=== PATIENT | male | born 1995 | race Caucasian/White ===

== ENCOUNTER 2018-11-26 15:31 | Emergency (ER) | payer MEDICAID ==
[~2018-11-26] VITALS: Ht 182.9 cm; Wt 83.0 kg
[2018-11-26 15:31] VITALS: BP_SYST 136
--- NOTE | 2018-11-26 15:31 | NUR ---
BROUGHT IN BY [facility] AND PLACED IN BED #4, TRIAGED. REPORT GIVEN TO RIGOBERTO
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
[2018-11-26] MEDS ORDERED: KETOROLAC TROMETHAMINE 30 MG VIAL IVP ONE (16:00)
--- NOTE | 2018-11-26 16:00 | NUR ---
# 20 gauge angiocath placed to LAC. Use of asceptic technique. Opsite placed over site. Blood return noted. Flushed with 10 cc of normal saline. No evidence of infiltration noted. Patient tolerated well.Pt medicated for pain.
--- NOTE | 2018-11-26 16:17 | NUR ---
Patient transported to radiology via GURNEY , accompanied by RAD STAFF.
--- NOTE | 2018-11-26 16:30 | NUR ---
Returned from radiology, back to [facility].
--- NOTE | 2018-11-26 17:30 | NUR ---
Pt reports pain resolving.
[2018-11-26 18:27] VITALS: BP_SYST 120
--- NOTE | 2018-11-26 18:27 | NUR ---
Patient given written and verbal discharge instructions and verbalizes understanding. ER MD Anaya discussed with patient the results and treatment provided. Patient in stable condition. ID arm band removed. IV catheter removed intact and dressing applied, no active bleeding. Rx of [place] given. Patient educated on pain management and to follow up with PMD. Pain Scale 0. Opportunity for questions provided and answered. Medication side effect fact sheet provided.
[2018-11-26] MEDS ORDERED: NORMAL SALINE 5 ML DISP.SYRIN IVF SCH (22:00)
== END 2018-11-26 18:27 | disposition home or self-care (01) ==
LOC: SED 15:31
DX: S22.31XA Fracture of one rib, right side, initial encounter for closed fracture (principal); V43.52XA Car driver injured in collision with other type car in traffic accident, initial encounter; Y93.89 Activity, other specified; Y92.411 Interstate highway as the place of occurrence of the external cause; Y99.8 Other external cause status
CPT/HCPCS: 71250; 72125; 74176; 93005; 96374; 99284; J1885